=== PATIENT | male | born 1960 | race Caucasian/White ===

== ENCOUNTER 2022-11-25 10:16 | Emergency (ER) | payer OTHER ==
[~2022-11-25] VITALS: Ht 188 cm; Wt 120.5 kg
[2022-11-25] MEDS ORDERED: LEVO150T7 PO (10:33)
[2022-11-25] MEDS ORDERED: CIAL5TAB PO (10:33)
[2022-11-25] MEDS ORDERED: BUPR300T92 PO (10:33)
[2022-11-25] MEDS ORDERED: METH-1164 PO (10:33)
[2022-11-25] MEDS ORDERED: LAMI1TAB9 PO (10:33)
[2022-11-25] MEDS ORDERED: HYDR-3713 PO (10:33)
[2022-11-25] MEDS ORDERED: ONDANSETRON 4MG 2ML VIAL IV ONE (10:50)
[2022-11-25] MEDS: MORPHINE 4 MG/ML 1ML VIAL IV PRN ×2 (11:14→12:24)
[2022-11-25] MEDS ORDERED: NS 500 ML IV ONE (11:15)
[2022-11-25 11:22] LABS: BASO % 0.4 % (0.0-1.0); EOS # 0.2 10^3/uL (0.0-0.5); EOS % 1.8 % (0.0-3.0); HEMATOCRIT 46.6 % (42.0-52.0); HEMOGLOBIN 15.3 g/dl (13.5-17.5); LYMPH # 0.4 10^3/uL (1.5-5.0); MEAN CORPUSCULAR HEMOGLOBIN 31.4 pg (27.0-33.0); MEAN CORPUSCULAR HGB CONC 32.8 g/dl (32.0-36.5); MEAN CORPUSCULAR VOLUME 95.5 fl (80.0-96.0); MONO # 0.4 10^3/uL (0.0-0.8); MONO % 4.2 % (2.0-8.0); NEUTROPHILS # 9.3 10^3/uL (1.5-8.5); PLATELET COUNT, AUTOMATED 214 10^3/uL (150-450); RED BLOOD COUNT 4.88 10^6/uL (4.30-6.10); WHITE BLOOD COUNT 10.4 10^3/uL (4.0-10.0)
[2022-11-25] MEDS ORDERED: ISOVUE-370 76% 100ML VIAL As Ordered ONE (11:53)
[2022-11-25 12:10] LABS: ALBUMIN 3.5 G/DL (3.2-5.2); BILIRUBIN,DIRECT 0.1 MG/DL (<0.4); BILIRUBIN,TOTAL 0.6 MG/DL (0.3-1.2); TOTAL PROTEIN 6.3 G/DL (5.7-8.2)
[2022-11-25] MEDS ORDERED: PERC5TAB12 PO (13:16)
[2022-11-25] MEDS ORDERED: ONDA4TAB6 PO (13:20)
[2022-11-25 13:30] VITALS: BP 114/75
== END 2022-11-25 13:46 | disposition home or self-care (01) ==
LOC: M ED 11:37
DX: S30.1XXA Contusion of abdominal wall, initial encounter (principal); S20.211A Contusion of right front wall of thorax, initial encounter; W01.0XXA Fall on same level from slipping, tripping and stumbling without subsequent striking against object, initial encounter; J98.11 Atelectasis; F32.A Depression, unspecified; F41.9 Anxiety disorder, unspecified; Z90.89 Acquired absence of other organs; E03.9 Hypothyroidism, unspecified; Z79.890 Hormone replacement therapy; Z79.899 Other long term (current) drug therapy
CPT/HCPCS: 71260; 74177; 80047; 80076; 81001; 82150; 83605; 83690; 85025; 86850; 86900; 86901; 93041; 94760; 96361; 96374; 96375; 96376; 99285; J2270; J2405